=== PATIENT | female | born 1990 | race Hispanic/Latino ===

== ENCOUNTER 2021-03-13 18:46 | Emergency (ER) | payer OTHER, SELFPAY ==
[2021-03-13] MEDS ORDERED: Ketorolac Tromethamine 30 MG/ML VIAL ONE (20:14)
[2021-03-13] MEDS ORDERED: HYDROcodone/Acetaminophen 5/325 mg Tablet ONE (20:15)
== END 2021-03-13 20:50 | disposition home or self-care (01) ==
LOC: CSHERS 18:46
DX: M79.10 Myalgia, unspecified site (principal); R10.9 Unspecified abdominal pain; M25.519 Pain in unspecified shoulder; M25.551 Pain in right hip; M25.552 Pain in left hip; Z85.43 Personal history of malignant neoplasm of ovary; V43.52XA Car driver injured in collision with other type car in traffic accident, initial encounter
CPT/HCPCS: 71046; 96372; J1885